=== PATIENT | male | born 1975 | race Native Hawaiian/Other Pacific Islander ===

== ENCOUNTER 2017-05-29 19:12 | Outpatient (CLI) | payer OTHER | END 2017-05-29 19:14 | disposition short-term general hospital (02) | LOC: AMB 19:12 | DX: S31.114A Laceration without foreign body of abdominal wall, left lower quadrant without penetration into peritoneal cavity, initial encounter (principal); X99.8XXA Assault by other sharp object, initial encounter; Y92.488 Other paved roadways as the place of occurrence of the external cause | CPT/HCPCS: A0425; A0427 ==

== ENCOUNTER 2017-05-29 19:15 | Emergency (ER) | payer OTHER ==
[~2017-05-29] VITALS: Ht 182.9 cm; Wt 113.4 kg
[2017-05-29 19:47] LABS: PLATELET COUNT 245 K/uL (142-355)
[2017-05-29 19:51] LABS: POTASSIUM 3.6 mmol/L (3.6-5.2); SODIUM 140 mmol/L (136-145)
[2017-05-29 20:02] LABS: PARTIAL THROMBOPLASTIN TIME 23.8 SECONDS (24.5-33.6)
[2017-05-29 21:28] VITALS: BP 116/55; TEMP 98.6
== END 2017-05-29 21:51 | disposition home or self-care (01) ==
LOC: ED 19:15
PROVIDERS: Emergency Medicine
PROC: 0JQ80ZZ Repair Abdomen Subcutaneous Tissue and Fascia, Open Approach (ICD-10-PCS; principal; 2017-05-29)
DX: S31.111A Laceration without foreign body of abdominal wall, left upper quadrant without penetration into peritoneal cavity, initial encounter (principal); X99.9XXA Assault by unspecified sharp object, initial encounter; Y92.410 Unspecified street and highway as the place of occurrence of the external cause
CPT/HCPCS: 80053; 80307; 80320; 85027; 85610; 85730; 90715; 96374; 96375; 99284; G0479; J0690; J1885; J2270; Q9963

== ENCOUNTER 2019-06-26 20:28 | Emergency (ER) | payer OTHER ==
[~2019-06-26] VITALS: Ht 175.3 cm; Wt 133.8 kg
[2019-06-26 22:43] LABS: PLATELET COUNT 206 K/uL (142-355)
[2019-06-27 02:34] VITALS: BP 116/69; TEMP 97.7
== END 2019-06-27 02:36 | disposition home or self-care (01) ==
LOC: ED 20:28
PROVIDERS: Hospitalist
DX: K21.9 Gastro-esophageal reflux disease without esophagitis (principal); K29.70 Gastritis, unspecified, without bleeding
CPT/HCPCS: 36415; 80053; 81000; 82150; 83690; 85027; 96374; 99284; J2405; Q9963

== ENCOUNTER 2021-09-11 10:00 | Emergency (ER) | payer OTHER ==
[~2021-09-11] VITALS: Ht 180.3 cm; Wt 124.7 kg
[2021-09-11 11:11] LABS: PLATELET COUNT 229 K/uL (142-355)
[2021-09-11 11:18] LABS: POTASSIUM 4.3 mmol/L (3.6-5.2)
[2021-09-11 13:00] VITALS: BP 144/84; TEMP 97.9
== END 2021-09-11 13:00 | disposition home or self-care (01) ==
LOC: ED 10:00
PROVIDERS: Emergency Medicine Emergency Medical Services
DX: M54.59 Other low back pain (principal); G89.29 Other chronic pain; M51.36 Other intervertebral disc degeneration, lumbar region
CPT/HCPCS: 80048; 85027; 96360; 96361; 96375; 99284; J1885